=== PATIENT | female | born 1995 | race Caucasian/White ===

== ENCOUNTER 2019-05-30 18:43 | Inpatient (IN) ==
[~2019-05-30] VITALS: Ht 157.5 cm; Wt 74.0 kg
[2019-05-30 18:46] VITALS: BP 101/53
[2019-05-30] MEDS ORDERED: BETAMETHASONE 6 MG/ML, 5ML IM ONE (19:55)
[2019-05-30 19:59] LABS: BASOPHILS # (AUTO) 0.05 x10^3/uL (0-0.1); BASOPHILS % (AUTO) 0 % (0-1); EOSINOPHILS # (AUTO) 0.31 x10^3/uL (0-0.4); EOSINOPHILS % (AUTO) 3 % (1-7); LYMPHOCYTES # (AUTO) 2.29 x10^3/uL (1-3.4); LYMPHOCYTES % (AUTO) 21 % (22-44); MD NO; MEAN CORPUSCULAR HEMOGLOBIN 31.2 pg (27.0-34.8); MEAN CORPUSCULAR HGB CONC 32.7 g/dL (32.4-35.8); MEAN CORPUSCULAR VOLUME 95.4 fL (80-100); MEAN PLATELET VOLUME 10.1 fL (7.4-10.4); MONOCYTES # (AUTO) 1.08 x10^3/uL (0.2-0.8); MONOCYTES % (AUTO) 10 % (2-9); NEUTROPHILS % (AUTO) 66 % (42-75); PLATELET COUNT 211 x10^3/uL (130-400); RED CELL DISTRIBUTION WIDTH 13.7 % (9.6-15.2)
[2019-05-30] MEDS: BETAMETHASONE 6 MG/ML, 5ML IM SCH (20:22)
[2019-05-30] MEDS: AMPICILLIN 2 GM in SODIUM CHLORIDE 0.9% 100 ML IV SCH (20:35)
[2019-05-30] MEDS: LACTATED RINGERS 1,000 ML IV SCH (20:54)
[2019-05-30] MEDS ORDERED: ACETAMINOPHEN 325 MG TABLET PO PRN (21:00)
[2019-05-30] MEDS ORDERED: CALCIUM CARBONATE 500 MG TAB.CHEW PO PRN (21:00)
[2019-05-30] MEDS ORDERED: AZITHROMYCIN 500 MG TABLET ONE (21:35)
[2019-05-30] MEDS: AZITHROMYCIN 500 MG TABLET PO SCH (21:37)
[2019-05-30 21:52] LABS: MICROSCOPIC NOT IND
[2019-05-30 22:08] LABS: CULTURE INDICATED? NO
[2019-05-31] MEDS: AMPICILLIN 2 GM in SODIUM CHLORIDE 0.9% 100 ML IV SCH ×4 (02:18→19:58)
[2019-05-31 02:21] VITALS: BP 97/52
[2019-05-31] MEDS: LACTATED RINGERS 1,000 ML IV SCH ×3 (05:20→19:27)
[2019-05-31] MEDS ORDERED: PRENATAL VIT/IRON/FA 1 EACH TABLET ONE (07:51)
[2019-05-31 08:33] VITALS: BP 126/61
[2019-05-31] MEDS ORDERED: AZITHROMYCIN 500 MG TABLET PO SCH (09:00)
[2019-05-31] MEDS ORDERED: PRENATAL VIT/IRON/FA 1 EACH TABLET PO SCH (09:00)
[2019-05-31] MEDS: BETAMETHASONE 6 MG/ML, 5ML IM SCH (20:03)
[2019-05-31] MEDS ORDERED: AZITHROMYCIN 500 MG TABLET ONE (20:44)
[2019-05-31] MEDS: AZITHROMYCIN 500 MG TABLET PO SCH (21:02)
[2019-06-01] MEDS: AMPICILLIN 2 GM in SODIUM CHLORIDE 0.9% 100 ML IV SCH ×4 (02:00→19:33)
[2019-06-01] MEDS: LACTATED RINGERS 1,000 ML IV SCH ×3 (03:27→19:27)
[2019-06-01 08:15] VITALS: BP 106/58
[2019-06-01 09:54] LABS: FERNING TEST FERNING NOT PRESENT (NEGATIVE)
[2019-06-01] MEDS: AZITHROMYCIN 500 MG TABLET PO SCH (20:49)
[2019-06-02] MEDS: AMPICILLIN 2 GM in SODIUM CHLORIDE 0.9% 100 ML IV SCH ×4 (02:02→20:02)
[2019-06-02] MEDS: LACTATED RINGERS 1,000 ML IV SCH ×3 (03:27→19:27)
[2019-06-02 08:00] VITALS: BP 110/67
[2019-06-02] MEDS ORDERED: DOCUSATE 100 MG CAPSULE ONE (08:29)
[2019-06-02] MEDS: DOCUSATE 100 MG CAPSULE PO PRN (08:35)
[2019-06-02] MEDS: PRENATAL VIT/IRON/FA 1 EACH TABLET PO SCH (08:35)
[2019-06-02] MEDS ORDERED: AZITHROMYCIN 500 MG TABLET ONE (20:40)
[2019-06-02] MEDS: AZITHROMYCIN 500 MG TABLET PO SCH (20:46)
[2019-06-03] MEDS: AMPICILLIN 2 GM in SODIUM CHLORIDE 0.9% 100 ML IV SCH ×4 (02:02→20:45)
[2019-06-03] MEDS: LACTATED RINGERS 1,000 ML IV SCH ×3 (03:27→19:27)
[2019-06-03 08:40] VITALS: BP 107/57
[2019-06-03] MEDS ORDERED: PRENATAL VIT/IRON/FA 1 EACH TABLET ONE (08:46)
[2019-06-03] MEDS ORDERED: DOCUSATE 100 MG CAPSULE ONE (08:46)
[2019-06-03] MEDS: PRENATAL VIT/IRON/FA 1 EACH TABLET PO SCH ×2 (08:48→09:00)
[2019-06-03] MEDS: DOCUSATE 100 MG CAPSULE PO PRN (08:48)
[2019-06-03] MEDS ORDERED: ACETAMINOPHEN 325 MG TABLET ONE (11:45)
[2019-06-03 19:30] VITALS: BP 116/66
[2019-06-03] MEDS ORDERED: AZITHROMYCIN 500 MG TABLET ONE (20:10)
[2019-06-03] MEDS: AZITHROMYCIN 500 MG TABLET PO SCH (20:44)
[2019-06-04] MEDS: AMPICILLIN 2 GM in SODIUM CHLORIDE 0.9% 100 ML IV SCH ×4 (01:51→19:58)
[2019-06-04] MEDS: LACTATED RINGERS 1,000 ML IV SCH ×3 (03:27→19:27)
[2019-06-04 08:00] VITALS: BP 111/50
[2019-06-04] MEDS ORDERED: PRENATAL VIT/IRON/FA 1 EACH TABLET ONE (09:10)
[2019-06-04] MEDS: PRENATAL VIT/IRON/FA 1 EACH TABLET PO SCH (09:13)
[2019-06-04] MEDS: DOCUSATE 100 MG CAPSULE PO PRN (09:14)
[2019-06-04 12:09] LABS: CHLORIDE 109 mmol/L (98-107)
[2019-06-04 12:15] LABS: CREATININE 0.43 mg/dL (0.55-1.02)
[2019-06-04 12:21] LABS: ALANINE AMINOTRANSFERASE 24 U/L (12-78); ALBUMIN 2.5 g/dL (3.4-5.0); ALKALINE PHOSPHATASE 402 U/L (45-117); ANION GAP 7 mmol/L (5-15); BILIRUBIN,TOTAL 0.2 mg/dL (0.2-1.0); CALCIUM 8.7 mg/dL (8.5-10.1); TOTAL PROTEIN 6.7 g/dL (6.4-8.2)
[2019-06-04] MEDS: AZITHROMYCIN 500 MG TABLET PO SCH (21:00)
[2019-06-04] MEDS ORDERED: DOCUSATE 100 MG CAPSULE ONE (22:42)
[2019-06-05] MEDS: LACTATED RINGERS 1,000 ML IV SCH ×3 (03:27→19:27)
[2019-06-05] MEDS ORDERED: PRENATAL VIT/IRON/FA 1 EACH TABLET ONE (08:48)
[2019-06-05] MEDS ORDERED: DOCUSATE 100 MG CAPSULE ONE ×2 (08:49→20:42)
[2019-06-05] MEDS: AZITHROMYCIN 500 MG TABLET PO SCH ×2 (09:00→21:20)
[2019-06-05] MEDS: PRENATAL VIT/IRON/FA 1 EACH TABLET PO SCH (09:05)
[2019-06-05] MEDS: DOCUSATE 100 MG CAPSULE PO PRN ×2 (09:05→21:21)
[2019-06-05 20:20] VITALS: BP 122/77
[2019-06-06] MEDS: LACTATED RINGERS 1,000 ML IV SCH ×3 (03:27→19:27)
[2019-06-06] MEDS ORDERED: PRENATAL VIT/IRON/FA 1 EACH TABLET ONE (08:58)
[2019-06-06] MEDS ORDERED: DOCUSATE 100 MG CAPSULE ONE (08:58)
[2019-06-06] MEDS: DOCUSATE 100 MG CAPSULE PO PRN (11:00)
[2019-06-06] MEDS: PRENATAL VIT/IRON/FA 1 EACH TABLET PO SCH (11:00)
[2019-06-06 19:15] VITALS: BP 119/74
[2019-06-06] MEDS ORDERED: AZITHROMYCIN 500 MG TABLET ONE (20:50)
[2019-06-06] MEDS: AZITHROMYCIN 500 MG TABLET PO SCH (20:55)
[2019-06-07 07:45] VITALS: BP 111/74
[2019-06-07] MEDS ORDERED: DOCUSATE 100 MG CAPSULE ONE ×2 (09:10→20:43)
[2019-06-07] MEDS ORDERED: PRENATAL VIT/IRON/FA 1 EACH TABLET ONE (09:10)
[2019-06-07] MEDS: PRENATAL VIT/IRON/FA 1 EACH TABLET PO SCH (09:14)
[2019-06-07] MEDS: DOCUSATE 100 MG CAPSULE PO PRN ×2 (09:14→20:46)
[2019-06-07 20:00] VITALS: BP 117/75
[2019-06-07] MEDS ORDERED: AZITHROMYCIN 500 MG TABLET ONE (20:43)
[2019-06-07] MEDS: AZITHROMYCIN 500 MG TABLET PO SCH (20:46)
[2019-06-08 08:30] VITALS: BP 128/77
[2019-06-08] MEDS ORDERED: DOCUSATE 100 MG CAPSULE ONE (09:03)
[2019-06-08] MEDS ORDERED: PRENATAL VIT/IRON/FA 1 EACH TABLET ONE (09:03)
[2019-06-08] MEDS: PRENATAL VIT/IRON/FA 1 EACH TABLET PO SCH (09:15)
[2019-06-08] MEDS: DOCUSATE 100 MG CAPSULE PO PRN (09:15)
[2019-06-08 12:10] VITALS: BP 121/68
[2019-06-08] MEDS: AZITHROMYCIN 500 MG TABLET PO SCH (23:16)
[2019-06-09 05:54] LABS: BASOPHILS # (AUTO) 0.06 x10^3/uL (0-0.1); BASOPHILS % (AUTO) 1 % (0-1); EOSINOPHILS # (AUTO) 0.38 x10^3/uL (0-0.4); EOSINOPHILS % (AUTO) 3 % (1-7); LYMPHOCYTES # (AUTO) 3.04 x10^3/uL (1-3.4); LYMPHOCYTES % (AUTO) 28 % (22-44); MD NO; MEAN CORPUSCULAR HEMOGLOBIN 30.9 pg (27.0-34.8); MEAN CORPUSCULAR HGB CONC 32.6 g/dL (32.4-35.8); MEAN PLATELET VOLUME 10.4 fL (7.4-10.4); MONOCYTES # (AUTO) 0.86 x10^3/uL (0.2-0.8); MONOCYTES % (AUTO) 8 % (2-9); NEUTROPHILS # (AUTO) 6.61 x10^3/uL (1.8-6.8); NEUTROPHILS % (AUTO) 60 % (42-75); PLATELET COUNT 211 x10^3/uL (130-400); RED BLOOD COUNT 3.94 x10^6/uL (3.82-5.3); RED CELL DISTRIBUTION WIDTH 13.9 % (9.6-15.2)
[2019-06-09 07:55] VITALS: BP 118/70
[2019-06-09] MEDS: PRENATAL VIT/IRON/FA 1 EACH TABLET PO SCH (09:00)
[2019-06-09 19:26] VITALS: BP 127/67
[2019-06-09] MEDS ORDERED: AZITHROMYCIN 500 MG TABLET ONE (21:13)
[2019-06-09] MEDS: AZITHROMYCIN 500 MG TABLET PO SCH (21:14)
[2019-06-10] MEDS: PRENATAL VIT/IRON/FA 1 EACH TABLET PO SCH (09:00)
[2019-06-10 19:03] VITALS: BP 122/74
[2019-06-10] MEDS ORDERED: DOCUSATE 100 MG CAPSULE ONE (20:34)
[2019-06-10] MEDS ORDERED: AZITHROMYCIN 500 MG TABLET ONE (20:34)
[2019-06-10] MEDS: AZITHROMYCIN 500 MG TABLET PO SCH (20:37)
[2019-06-10] MEDS: DOCUSATE 100 MG CAPSULE PO PRN (20:37)
[2019-06-11 07:30] VITALS: BP 117/74
[2019-06-11] MEDS ORDERED: PRENATAL VIT/IRON/FA 1 EACH TABLET ONE (09:21)
[2019-06-11] MEDS ORDERED: DOCUSATE 100 MG CAPSULE ONE (09:22)
[2019-06-11] MEDS: DOCUSATE 100 MG CAPSULE PO PRN (09:23)
[2019-06-11] MEDS: PRENATAL VIT/IRON/FA 1 EACH TABLET PO SCH (09:23)
[2019-06-11 19:20] VITALS: BP 120/63
[2019-06-11] MEDS: SODIUM CHLORIDE FLUSH 3ML SYRINGE IVF SCH (21:00)
[2019-06-11] MEDS ORDERED: AZITHROMYCIN 500 MG TABLET ONE (21:08)
[2019-06-11] MEDS: AZITHROMYCIN 500 MG TABLET PO SCH (21:09)
[2019-06-12 01:24] VITALS: BP 122/71
[2019-06-12 05:34] LABS: BASOPHILS # (AUTO) 0.08 x10^3/uL (0-0.1); BASOPHILS % (AUTO) 1 % (0-1); EOSINOPHILS # (AUTO) 0.41 x10^3/uL (0-0.4); EOSINOPHILS % (AUTO) 4 % (1-7); LYMPHOCYTES # (AUTO) 2.89 x10^3/uL (1-3.4); LYMPHOCYTES % (AUTO) 26 % (22-44); MD NO; MEAN CORPUSCULAR HEMOGLOBIN 30.8 pg (27.0-34.8); MEAN CORPUSCULAR HGB CONC 32.6 g/dL (32.4-35.8); MEAN CORPUSCULAR VOLUME 94.5 fL (80-100); MEAN PLATELET VOLUME 10.4 fL (7.4-10.4); MONOCYTES # (AUTO) 1.07 x10^3/uL (0.2-0.8); MONOCYTES % (AUTO) 10 % (2-9); NEUTROPHILS # (AUTO) 6.69 x10^3/uL (1.8-6.8); NEUTROPHILS % (AUTO) 60 % (42-75); PLATELET COUNT 184 x10^3/uL (130-400); RED BLOOD COUNT 3.83 x10^6/uL (3.82-5.3); RED CELL DISTRIBUTION WIDTH 13.9 % (9.6-15.2)
[2019-06-12] MEDS ORDERED: DOCUSATE 100 MG CAPSULE ONE (08:23)
[2019-06-12] MEDS ORDERED: PRENATAL VIT/IRON/FA 1 EACH TABLET ONE (08:23)
[2019-06-12] MEDS: SODIUM CHLORIDE FLUSH 3ML SYRINGE IVF SCH ×2 (08:24→20:09)
[2019-06-12] MEDS: PRENATAL VIT/IRON/FA 1 EACH TABLET PO SCH (08:24)
[2019-06-12] MEDS: DOCUSATE 100 MG CAPSULE PO PRN (08:24)
[2019-06-12 08:35] VITALS: BP 114/71
[2019-06-12] MEDS ORDERED: CALCIUM CARBONATE 500 MG TAB.CHEW ONE (12:55)
[2019-06-12 20:08] VITALS: BP 120/70
[2019-06-12] MEDS ORDERED: AZITHROMYCIN 500 MG TABLET ONE (21:04)
[2019-06-12] MEDS: AZITHROMYCIN 500 MG TABLET PO SCH (21:08)
[2019-06-13] MEDS ORDERED: NEWBORN KIT ONE (07:47)
[2019-06-13] MEDS ORDERED: MISOPROSTOL 200 MCG TABLET ONE (07:47)
[2019-06-13] MEDS ORDERED: OXYTOCIN 30U/ 0.9% NaCL 500ML 500 ML ONE ×2 (07:47→19:23)
[2019-06-13] MEDS ORDERED: LIDOCAINE 1%, 20ML ONE (07:47)
[2019-06-13] MEDS ORDERED: OXYTOCIN 30U/ 0.9% NaCL 500ML 500 ML IV ONE (08:31)
[2019-06-13] MEDS ORDERED: D5%-LACTATED RINGERS 1,000 ML IV SCH (08:31)
[2019-06-13] MEDS: LACTATED RINGERS 1,000 ML IV SCH ×2 (08:31→13:49)
[2019-06-13] MEDS ORDERED: FENTANYL/BUPIV./NS/PF 250 ML EPIDCONT SCH ×2 (08:31→14:41)
[2019-06-13] MEDS ORDERED: OXYTOCIN 30U/ 0.9% NaCL 500ML 500 ML IV PRN ×2 (08:31→14:53)
[2019-06-13] MEDS ORDERED: SODIUM CHLORIDE FLUSH 10ML SYR IVF PRN (09:00)
[2019-06-13] MEDS ORDERED: ALUMINUM/MAG/SIMETHICONE 30 ML UDC PO PRN (09:00)
[2019-06-13] MEDS ORDERED: METOCLOPRAMIDE 5 MG/ML, 2ML IVPush PRN (09:00)
[2019-06-13] MEDS: PRENATAL VIT/IRON/FA 1 EACH TABLET PO SCH (09:00)
[2019-06-13] MEDS ORDERED: ONDANSETRON 2MG/ML, 2ML IVPush PRN ×2 (09:00→15:00)
[2019-06-13] MEDS ORDERED: LACTATED RINGERS 1,000 ML IVBOLUS PRN ×2 (09:00→15:00)
[2019-06-13] MEDS ORDERED: FENTANYL PF 500 MCG, BUPIVACAINE/PF 0.5%, 30ML 62.5 ML in SODIUM CHLORIDE 0.9% 177.5 ML EPIDCONT SCH (09:00)
[2019-06-13] MEDS ORDERED: SODIUM CITRATE/CITRIC ACID 30 ML UDC PO PRN (09:00)
[2019-06-13] MEDS ORDERED: TERBUTALINE 1 MG/ML, 1ML IVPush PRN (09:00)
[2019-06-13] MEDS ORDERED: FENTANYL PF 100 MCG/2ML IVPush PRN (09:00)
[2019-06-13] MEDS ORDERED: CALCIUM CARBONATE 500 MG TAB.CHEW PO PRN (09:00)
[2019-06-13] MEDS: SODIUM CHLORIDE FLUSH 3ML SYRINGE IVF SCH ×2 (09:00→21:00)
[2019-06-13] MEDS ORDERED: BUPIVACAINE 0.25% ONE (11:11)
[2019-06-13] MEDS ORDERED: LACTATED RINGERS 1,000 ML IV SCH (14:41)
[2019-06-13] MEDS ORDERED: NALOXONE 0.4 MG/ML, 1ML IVPush PRN (15:00)
[2019-06-13] MEDS ORDERED: DIPHENHYDRAMINE 50 MG/ML, 1ML IVPush PRN (15:00)
[2019-06-13] MEDS ORDERED: EPHEDRINE 50 MG/ML, 1ML IVPush PRN (15:00)
[2019-06-13] MEDS ORDERED: OXYcodone/APAP 5/325MG TABLET PO PRN (15:30)
[2019-06-13] MEDS ORDERED: DOCUSATE 100 MG CAPSULE PO PRN (15:30)
[2019-06-13] MEDS ORDERED: MISOPROSTOL 200 MCG TABLET PR PRN (15:30)
[2019-06-13] MEDS ORDERED: SIMETHICONE 80 MG CHEW TAB PO PRN (15:30)
[2019-06-13] MEDS ORDERED: ONDANSETRON 2MG/ML, 2ML ONE ×2 (15:34→19:27)
[2019-06-13] MEDS ORDERED: IBUPROFEN 600 MG TABLET ONE (18:23)
[2019-06-13] MEDS: IBUPROFEN 600 MG TABLET PO PRN (18:25)
[2019-06-13] MEDS: OXYTOCIN 30U/ 0.9% NaCL 500ML 500 ML IV SCH (19:25)
[2019-06-13 20:30] VITALS: BP 112/72
[2019-06-14 00:40] VITALS: BP 109/70
[2019-06-14] MEDS: OXYTOCIN 30U/ 0.9% NaCL 500ML 500 ML IV SCH ×3 (01:19→21:19)
[2019-06-14 04:30] VITALS: BP 101/64
[2019-06-14 05:32] LABS: BASOPHILS # (AUTO) 0.11 x10^3/uL (0-0.1); BASOPHILS % (AUTO) 1 % (0-1); EOSINOPHILS % (AUTO) 4 % (1-7); LYMPHOCYTES # (AUTO) 2.77 x10^3/uL (1-3.4); LYMPHOCYTES % (AUTO) 20 % (22-44); MD NO; MEAN CORPUSCULAR HEMOGLOBIN 31.5 pg (27.0-34.8); MEAN CORPUSCULAR HGB CONC 33.1 g/dL (32.4-35.8); MEAN CORPUSCULAR VOLUME 94.9 fL (80-100); MEAN PLATELET VOLUME 10.3 fL (7.4-10.4); MONOCYTES # (AUTO) 1.21 x10^3/uL (0.2-0.8); MONOCYTES % (AUTO) 9 % (2-9); NEUTROPHILS # (AUTO) 9.03 x10^3/uL (1.8-6.8); NEUTROPHILS % (AUTO) 66 % (42-75); PLATELET COUNT 164 x10^3/uL (130-400); RED BLOOD COUNT 3.38 x10^6/uL (3.82-5.3); RED CELL DISTRIBUTION WIDTH 13.6 % (9.6-15.2)
[2019-06-14] MEDS: IBUPROFEN 600 MG TABLET PO PRN ×2 (06:35→19:31)
[2019-06-14 07:35] VITALS: BP 109/73
[2019-06-14] MEDS: PRENATAL VIT/IRON/FA 1 EACH TABLET PO SCH (08:45)
[2019-06-14] MEDS: DOCUSATE 100 MG CAPSULE PO PRN ×2 (08:45→19:31)
[2019-06-14] MEDS ORDERED: PRENATAL VIT/IRON/FA 1 EACH TABLET PO SCH (09:00)
[2019-06-14 11:55] VITALS: BP 112/79
[2019-06-14] MEDS ORDERED: FLU VACC QS2019-20 36MOS UP/PF 0.5 ML IM-VACC ONE (15:00)
[2019-06-14] MEDS ORDERED: DIPH,PERTUSS(ACELL),TET VAC/PF NC IM-VACC ONE ×2 (16:35→17:00)
[2019-06-14 17:09] VITALS: BP 121/75
[2019-06-14 19:20] VITALS: BP 118/78
[2019-06-15] MEDS: IBUPROFEN 600 MG TABLET PO PRN ×2 (02:37→08:45)
[2019-06-15] MEDS: OXYTOCIN 30U/ 0.9% NaCL 500ML 500 ML IV SCH (07:19)
[2019-06-15 07:40] VITALS: BP 110/69
[2019-06-15] MEDS: PRENATAL VIT/IRON/FA 1 EACH TABLET PO SCH (08:45)
[2019-06-15] MEDS: DOCUSATE 100 MG CAPSULE PO PRN (08:45)
== END 2019-06-15 14:05 | disposition home or self-care (01) | DRG 560 ==
LOC: LDOP 18:43 → LDIP 19:35 → 2NW 06-13 20:21
PROVIDERS: ADMIT Obstetrics & Gynecology; ATTEND Obstetrics & Gynecology
PROC: 10E0XZZ Delivery of Products of Conception, External Approach (ICD-10-PCS; principal; 2019-06-13)
PROC: 3E0R3BZ Introduction of Anesthetic Agent into Spinal Canal, Percutaneous Approach (ICD-10-PCS; 2019-06-13)
PROC: 00HU33Z Insertion of Infusion Device into Spinal Canal, Percutaneous Approach (ICD-10-PCS; 2019-06-13)
DX: O60.14X0 Preterm labor third trimester with preterm delivery third trimester, not applicable or unspecified (principal); O32.1XX0 Maternal care for breech presentation, not applicable or unspecified; O32.0XX0 Maternal care for unstable lie, not applicable or unspecified; O42.913 Preterm premature rupture of membranes, unspecified as to length of time between rupture and onset of labor, third trimester; Z37.0 Single live birth; O69.81X0 Labor and delivery complicated by cord around neck, without compression, not applicable or unspecified; Z3A.32 32 weeks gestation of pregnancy
CPT/HCPCS: 36415; 76805; 76815; 80053; 81003; 82565; 84112; 85025; 86850; 86900; 87081; 89060; 90686; 90715; G0378; J0290; J0702; J2405; J2590; J7120; Q0114